=== PATIENT | female | born 1980 | race Caucasian/White ===

== ENCOUNTER 2018-04-07 01:55 | Emergency (ER) | payer OTHER ==
[~2018-04-07] VITALS: Ht 167.6 cm; Wt 81.8 kg
[~2018-04-07 01:55] MED LIST: ACET-66 PO
[2018-04-07 02:35] LABS: BASOPHILS % (AUTO) 0.7 % (0.0-2.0); EOSINOPHILS % (AUTO) 1.6 % (1.0-6.0); HEMATOCRIT 35.5 % (36-46); HEMOGLOBIN 12.8 g/dL (12.0-16.0); LYMPHOCYTES # (AUTO) 1.7 K/uL (1.0-4.8); LYMPHOCYTES % (AUTO) 16.9 % (22.0-44.0); MEAN CORPUSCULAR HEMOGLOBIN 30.8 pg (26.0-34.0); MEAN CORPUSCULAR HGB CONC 36.1 G/dL (31.0-37.0); MEAN CORPUSCULAR VOLUME 85 fL (80-100); MONOCYTES # (AUTO) 0.6 K/uL (0.1-1.0); MONOCYTES % (AUTO) 5.6 % (2.0-9.0); NEUTROPHILS # (AUTO) 7.5 K/uL (1.8-7.7); NEUTROPHILS % (AUTO) 75.2 % (40.0-70.0); PLATELET COUNT (AUTO) 219 K/uL (150-450); RED BLOOD CELL COUNT(AUTO) 4.16 MIL/uL (4.00-5.20)
[2018-04-07 02:42] LABS: ANION GAP 14 mmol/L (8-16); CALCIUM, TOTAL 8.1 mg/dL (8.8-10.5); CARBON DIOXIDE 20 mmol/L (22-29); CHLORIDE 104 mmol/L (98-107); CREATININE 0.78 mg/dL (0.60-1.30); GLOMERULAR FILTR. RATE CALC > 60 mL/min (>60); GLUCOSE,RANDOM 142 mg/dL (70-110); POTASSIUM 3.7 mmol/L (3.5-5.1); SODIUM SERUM 138 mmol/L (136-145); UREA NITROGEN, BLOOD 20 mg/dL (7-18)
[2018-04-07 02:48] LABS: ALBUMIN 3.2 g/dL (3.4-5.0); ALKALINE PHOSPHATASE 77 U/L (46-116); AMYLASE 58 U/L (25-115); BILIRUBIN,TOTAL 0.4 mg/dL (0.1-1.0); LIPASE 157 U/L (73-393)
[2018-04-07 03:19] LABS: ALANINE AMINOTRANSFERASE 40 U/L (12-78); ASPARTATE AMINOTRANSFERASE 16 U/L (15-37)
[2018-04-07 04:20] LABS: BILIRUBIN,URINE NEGATIVE (NEGATIVE); GLUCOSE, URINE (UA) NEGATIVE (NEGATIVE); KETONES,URINE NEGATIVE (NEGATIVE); LEUKOCYTE ESTERASE ,URINE NEGATIVE (NEGATIVE); NITRATE,URINE NEGATIVE (NEGATIVE); OCCULT BLOOD,URINE LARGE (NEGATIVE); PROTEIN,URINE NEGATIVE (NEGATIVE); UROBILINOGEN,URINE 0.2 mg/dL (<=1.0)
[2018-04-07 04:36] LABS: APPEARANCE,URINE HAZY (CLEAR)
[2018-04-07 04:41] LABS: BACTERIA,URINE Rare /HPF (None Seen); SQUAMOUS EPITHELIAL CELL,UR Few /LPF (None Seen); WBC,URINE 0-2 /HPF (0-5)
[2018-04-07 05:20] VITALS: BP 100/68
== END 2018-04-07 05:27 | disposition home or self-care (01) ==
LOC: EMS 01:58
DX: R10.13 Epigastric pain (principal); R11.10 Vomiting, unspecified
CPT/HCPCS: 99284

== ENCOUNTER 2019-06-05 13:04 | Emergency (ER) | payer OTHER ==
[~2019-06-05] VITALS: Ht 167.6 cm; Wt 95.5 kg
[2019-06-05] MEDS ORDERED: BACITRACIN 0.9 GM PACKET OINTMENT TP ONE (13:30)
[2019-06-05 13:46] VITALS: BP 111/68
== END 2019-06-05 14:01 | disposition home or self-care (01) ==
LOC: EMS 13:05
DX: S51.811A Laceration without foreign body of right forearm, initial encounter (principal); S50.811A Abrasion of right forearm, initial encounter; W25.XXXA Contact with sharp glass, initial encounter; Y93.89 Activity, other specified; Y92.89 Other specified places as the place of occurrence of the external cause; Y99.8 Other external cause status

== ENCOUNTER 2022-01-10 21:54 | Emergency (ER) | payer OTHER ==
[~2022-01-10] VITALS: Ht 167.6 cm; Wt 95.0 kg
[2022-01-10 22:02] VITALS: BP 121/63
[2022-01-10] MEDS ORDERED: KETOROLAC TROMETHAMINE 30 MG/ML VIAL IM ONE (22:45)
== END 2022-01-11 00:05 | disposition home or self-care (01) ==
LOC: EMS 21:56
DX: S86.912A Strain of unspecified muscle(s) and tendon(s) at lower leg level, left leg, initial encounter (principal); X58.XXXA Exposure to other specified factors, initial encounter; Y93.89 Activity, other specified; Y92.89 Other specified places as the place of occurrence of the external cause; Y99.8 Other external cause status
CPT/HCPCS: 93971; 96372; 99284; J1885

== ENCOUNTER 2023-11-18 18:52 | Emergency (ER) | payer OTHER ==
[~2023-11-18] VITALS: Ht 167.6 cm; Wt 95.0 kg
[2023-11-18 20:14] VITALS: BP 104/51; PULSE 63; RESP 18; TEMP 98.1
[2023-11-18] MEDS ORDERED: AMOX500C2 PO (22:21)
[2023-11-18] MEDS ORDERED: HYDR-4723 PO (22:21)
[2023-11-18] MEDS ORDERED: IBUP-1492 PO (22:21)
[2023-11-18] MEDS: IBUPROFEN 800 MG TABLET PO ONE (22:41)
[2023-11-18] MEDS: HYDROCODONE/ACETAMINOPHEN 5-325 MG TABLET PO ONE (22:41)
[2023-11-18] MEDS: AMOXICILLIN TRIHYDRATE 250 MG CAPSULE PO ONE (22:41)
== END 2023-11-18 22:47 | disposition home or self-care (01) ==
LOC: EMS 18:52
DX: K02.9 Dental caries, unspecified (principal)
CPT/HCPCS: 99284; Z7502; Z7610

== ENCOUNTER 2024-05-20 22:55 | Emergency (ER) | payer OTHER ==
[~2024-05-20] VITALS: Ht 167.6 cm; Wt 81.8 kg
[~2024-05-20 22:55] MED LIST changes: -ACET-66 PO; +AMOX500C2 PO; +HYDR-4062 PO; +IBUP-1492 PO
[2024-05-20 23:03] VITALS: TEMP 97.6
[2024-05-20] MEDS: BACITRACIN 0.9 GM PACKET OINTMENT TP ONE (23:38)
[2024-05-20] MEDS: PERTUSS(ACELL),DIPH,TET/PF 0.5 ML SYRINGE [ADULT] IM. ONE (23:40)
[2024-05-21] VITALS: BP 129/80; PULSE 71; RESP 18; O2SAT 98
== END 2024-05-21 00:24 | disposition home or self-care (01) ==
LOC: EMS 22:57
DX: S81.812A Laceration without foreign body, left lower leg, initial encounter (principal); W26.8XXA Contact with other sharp object(s), not elsewhere classified, initial encounter; Y93.89 Activity, other specified; Y92.89 Other specified places as the place of occurrence of the external cause; Y99.8 Other external cause status
CPT/HCPCS: 90471; 90715; 99283